=== PATIENT | female | born 1960 | race American Indian/Alaskan Native ===

== ENCOUNTER 2019-02-22 08:32 | Emergency (ER) | payer OTHER ==
[2019-02-22 08:37] VITALS: TEMP 98.2; BMI 19.9
[2019-02-22] MEDS ORDERED: METOCLOPRAMIDE HCL INJECTION 10 MG/2 ML VIAL IVPUSH ONE (08:59)
[2019-02-22] MEDS ORDERED: SODIUM CHLORIDE 1,000 ML IV STA (08:59)
[2019-02-22] MEDS ORDERED: ONDANSETRON 4 MG/2 ML VIAL IVPUSH ONE (09:00)
[2019-02-22] MEDS ORDERED: METOCLOPRAMIDE HCL INJECTION 10 MG/2 ML VIAL ONE (09:23)
[2019-02-22] MEDS ORDERED: ONDANSETRON 4 MG/2 ML VIAL ONE (09:23)
[2019-02-22] MEDS ORDERED: MORPHINE SULFATE 2 MG/ML VIAL ONE (09:24)
[2019-02-22] MEDS ORDERED: morphine CARPU-JECT 2 MG/1 ML DISP.SYRIN IVPUSH ONE (09:26)
[2019-02-22 09:41] LABS: BASO % 0.7 % (0-2.0); EOS % 0.9 % (0-4.5); HEMATOCRIT 42.4 % (32.4-45.2); HEMOGLOBIN 14.5 GM/dL (10.7-15.3); LYMPH % 25.2 % (8-40); MCH 30.3 pg (25.7-33.7); MCHC 34.2 g/dl (32.0-36.0); MEAN CELL VOLUME 88.6 fl (80-96); MEAN PLT VOLUME 7.3 fl (7.5-11.1); MONO % 3.8 % (3.8-10.2); NEUT % 69.4 % (42.8-82.8); PLATELET COUNT 323 K/MM3 (134-434); RBC 4.79 M/mm3 (3.60-5.2); RDW 13.4 % (11.6-15.6); WHITE BLOOD COUNT 8.4 K/mm3 (4.0-10.0)
[2019-02-22 09:49] LABS: INR 1.03 (0.83-1.09); PROTHROMBIN TIME (PATIENT) 12.2 SEC (9.7-13.0)
[2019-02-22 09:52] LABS: ACTIVATED PTT 35.6 SECONDS (25.2-36.5)
--- NOTE | 2019-02-22 10:00 | PDOC ---
History of Present Illness - General Chief Complaint: Headache Stated Complaint: Weakness Time Seen by Provider: 02/22/19 08:35 - History of Present Illness Initial Comments: 02/22/19 09:49 This is a 58 year old female with PMH significant for HTN (on Norvasc 10mg). She presents to the ER brought by EMS with complaints of a headache for the past 2 days. It is primarily in the frontal region of her head, was sudden in onset, started at7/10 and is now 8-9/10 in intensity, dull in quality, constant in nature, radiates down her neck, with no aggravating or alleviating factors. The pain is not affected by lights or sounds, and lying in a dark room does not help. She has associated light headedness, nausea for the past 2 days, intermittent chest tightness since last night, and 1 episode of nbnb vomiting on her way to the hospital. She has no associated mental status changes, visual changes, SOB , palpitations, coughs, diarrhea, constipation, dysuria, hematuria, or polyuria. She states that she has never had a headache like this before. She took Advil twice, yesterday and the day before yesterday, with no relief of symptoms. Her BP recorded at home yesterday was 170/108. She works as a NICU nurse, received a flu shot on the , but denies new medication, recent illnesses, sick contacts, or travel. She has been taking her Norvasc regularly once a day. Past History - Past Medical History Allergies/Adverse Reactions: Allergies Allergy/AdvReac Type Severity Reaction Status Date / Time No Known Allergies Allergy Verified 02/22/19 08:33 Home Medications: Ambulatory Orders Amlodipine Besylate [Norvasc -] 10 mg PO DAILY 02/22/19 COPD: No HTN: Yes - Psycho Social/Smoking Cessation Hx Smoking History: Never smoked Have you smoked in the past 12 months: No Information on smoking cessation initiated: No Hx Alcohol Use: No Drug/Substance Use Hx: No *Physical Exam - Vital Signs Last Vital Signs Temp Pulse Resp BP Pulse Ox 98.2 F 85 22 H 176/106 H 94 L 02/22/19 08:35 02/22/19 08:35 02/22/19 08:35 02/22/19 08:35 02/22/19 08:35 ED Treatment Course - LABORATORY CBC & Chemistry Diagram: 02/22/19 09:25 02/22/19 09:25 - ADDITIONAL ORDERS Additional order review: 02/22/19 09:25 RBC 4.79 MCV 88.6 MCHC 34.2 RDW 13.4 MPV 7.3 L Neutrophils % 69.4 Lymphocytes % 25.2 Monocytes % 3.8 Eosinophils % 0.9 Basophils % 0.7 - Medications Given in the ED: ED Medications Discontinued Medications Generic Name Dose Route Start Last Admin Trade Name Lacey PRN Reason Stop Dose Admin Metoclopramide HCl 10 mg 02/22/19 08:59 02/22/19 09:33 Reglan Injection - IVPUSH 02/22/19 09:00 10 mg ONCE ONE Administration Morphine Sulfate 2 mg 02/22/19 09:26 02/22/19 09:34 Morphine Injection - IVPUSH 02/22/19 09:27 2 mg ONCE ONE Administration Ondansetron HCl 4 mg 02/22/19 09:00 02/22/19 09:33 Zofran Injection IVPUSH 02/22/19 09:01 4 mg ONCE ONE Administration Medical Decision Making - Medical Decision Making 02/22/19 9:31 - CT Head stat - CBC/CMP/PT INR - EKG, Trop - Zofran 4mg, Reglan 10mg - Morphine 2mg IVPUSH - N/S 1000cc bolus 02/22/19 10:00 - CT shows no acute pathology, no infarct, no hemorrhage, no evidence of sinus infection 02/22/19 10:53 - B/P down to 145/95 - Pt reports partial relief of pain - Will give Toradol 30mg IV Discharge - Discharge Information Problems reviewed: Yes Clinical Impression/Diagnosis: Headache Condition: Guarded - Admission No - Follow up/Referral Referrals: Michael Linares MD [Primary Care Provider] - Jonn Granado DO [Staff Physician] - - Patient Discharge Instructions Patient Printed Discharge Instructions: Migraine -- Adult Additional Instructions: You came into the ER because of a headache. While you were here, we did bloodowork, a CT scan of your head, an EKG, and gave you IV fluids, as well as medicine for your pain. Your lab results show no abnormalities, and you do not require further treatment in the ER, so you are now being discharged. Medication: - Please take Tylenol 600mg (3x 200mg pills) if you experience further headaches. Follow up: - Please make an appointment with your primary care physician within the next 1 week. - Please make an appointment with our Neurologist Dr. Granado within the next 1 week. He may want to perform further scans of your head, such as an MRI. Additional Information: Please return to the ER if you experience any nausea, vomiting, visual disturbances, prolonged headaches, vomiting, diarrhea, fever, or any concerning symptoms. - Post Discharge Activity Work/Back to School Note: Back to Work
[2019-02-22 10:08] LABS: ALBUMIN 4.1 g/dl (3.4-5.0); ALK PHOS 106 U/L (45-117); ANION GAP 5 MMOL/L (8-16); BILIRUBIN,TOTAL 0.7 mg/dL (0.2-1); BLOOD UREA NITROGEN 8.6 mg/dL (7-18); CALCIUM 9.2 mg/dL (8.5-10.1); CHLORIDE 107 mmol/L (98-107); CO2 28 mmol/L (21-32); CREATININE 0.7 mg/dL (0.55-1.3); GLUCOSE,RANDOM 109 mg/dL (74-106); POTASSIUM 3.8 mmol/L (3.5-5.1); SGOT/AST 20 U/L (15-37); SGPT/ALT 39 U/L (13-61); SODIUM 140 mmol/L (136-145); TOT PROT 7.9 g/dl (6.4-8.2)
[2019-02-22] MEDS ORDERED: KETOROLAC TROMETHAMINE 30 MG/1 ML VIAL IVPUSH ONE (10:26)
[2019-02-22] MEDS ORDERED: KETOROLAC TROMETHAMINE 30 MG/1 ML VIAL ONE (10:28)
--- NOTE | 2019-02-22 10:43 | PDOC ---
Attending Attestation - Resident Resident Name: SeanDonnell zavala - ED Attending Attestation I have performed the following: I have examined & evaluated the patient, The case was reviewed & discussed with the resident, I agree w/resident's findings & plan - HPI HPI: 02/22/19 10:38 58y/o F nurse with HTN, compliant with meds, p/w headache for 5 days. Pt with gradual onset frontal headache 5 days ago, no visual/speech/motor/sensory sxs. Took tylenol on day one with minimal relief, 200mg advil since then without relief. Presents today 2/2 BP measurement this morning of 170 despite compliance with meds. no cardiopulmonary complaints, works 12h shifts without difficulty. - Physicial Exam PE: 02/22/19 10:43 BP initially elevated at triage, improved to 140 systolic on my exam after pain meds well appearing, nad s1s2 rrr, ctab abd benign, no edema NEURO: Mental status: The patient is alert and oriented x3. Cranial nerves: Cranial nerves II through XII are intact Motor: The upper extremities are 5 over 5 in all muscle groups. The lower extremities are 5 over 5 in all muscle groups. No pronator drift. Sensation: Sensation is intact to light touch throughout. Cerebellar: [id number] is normal in both upper extremities. Heel-knee- blood is normal in both lower extremities. Reflexes: 2+ and symmetric in the upper and lower extremities. Gait: Normal. Heel and toe walking are normal. Tandem gait is normal. - Medical Decision Making 02/22/19 10:44 58-year-old female with history of hypertension but no history of headache diagnosis presents with 5 days of gradual onset mild headache without red flags on history or physical exam, slightly elevated blood pressure this morning but otherwise asymptomatic with regard to endorgan symptoms. Labs, EKG are within normal limits CT head performed given new onset headache in a 58-year-old, no acute abnormalities Received pain medication, feels better, will reassess and disposition accordingly with neurology and PCP follow-up. Understands return criteria. Heart Score/ECG Review #1 ECG reviewed & interpreted by me at: 10:01 General ECG Interpretation: Sinus Rhythm, Normal Rate (68), Normal Intervals ( qtc 455, borderline LVH, IRBBB), No acute ischemic changes
[2019-02-22 11:21] VITALS: BP 137/76; PULSE 72
--- NOTE | 2019-02-23 11:03 | EKG ---
Test Reason : Blood Pressure : / mmHG Vent. Rate : 068 BPM Atrial Rate : 068 BPM P-R Int : 172 ms QRS Dur : 090 ms QT Int : 428 ms P-R-T Axes : 070 -04 013 degrees QTc Int : 455 ms NORMAL SINUS RHYTHM POSSIBLE LEFT ATRIAL ENLARGEMENT LEFT VENTRICULAR HYPERTROPHY NONSPECIFIC T WAVE ABNORMALITY ABNORMAL ECG WHEN COMPARED WITH ECG OF 01-MAY-2011 15:23, T WAVE INVERSION MORE EVIDENT IN ANTERIOR LEADS Confirmed by ALMA ROSA SONI, KILO ([id number]) on 02/23/2019 11:03:32 AM Referred By: Confirmed By:KILO ST MD
== END 2019-02-22 11:57 | disposition home or self-care (01) ==
LOC: JER 08:32
DX: I10 Essential (primary) hypertension (principal); R51 Headache
CPT/HCPCS: 36415; 70450-TC; 80053; 82550; 84484; 85025; 85610; 85730; 93005; 93010; 99283-25; J7030